=== PATIENT | female | born 1970 | race Caucasian/White ===

== ENCOUNTER 2016-08-04 12:20 | Emergency (ER) | payer MEDICAID ==
[~2016-08-04] VITALS: Ht 165.1 cm; Wt 90.7 kg
[2016-08-04 13:01] VITALS: BP 116/75
[2016-08-04] MEDS ORDERED: VENTOLIN H0.09 MG/Ac IH (13:05)
--- NOTE | 2016-08-04 13:19 | NUR ---
PATIENT PRESENTS TO ED WITH ABD. PAIN AND LOW BACK PAIN X2DAYS. HX: ASTHMA AND HTN;. DENIES N/V/D; SKIN IS PINK/WARM/DRY; AAOX4 WITH EVEN AND STEADY GAIT; LUNGS CLEAR BL; HR EVEN AND REGULAR; PT DENIES ANY FEVER, CP, SOB, OR COUGH AT THIS TIME; PATIENT STATES PAIN OF 7/10 AT THIS TIME; VSS; PATIENT POSITIONED FOR COMFORT; HOB ELEVATED; BEDRAILS UP X2; BED DOWN. ER MD MADE AWARE OF PT STATUS.
[2016-08-04 13:40] VITALS: BP 116/75
== END 2016-08-04 13:41 | disposition home or self-care (01) ==
LOC: MED 12:20
DX: N39.0 Urinary tract infection, site not specified (principal); E66.01 Morbid (severe) obesity due to excess calories; J45.909 Unspecified asthma, uncomplicated; I10 Essential (primary) hypertension; Z68.33 Body mass index [BMI] 33.0-33.9, adult

== ENCOUNTER 2016-12-29 17:38 | Emergency (ER) | payer MEDICAID ==
[~2016-12-29] VITALS: Ht 154.9 cm; Wt 130.7 kg
[~2016-12-29 17:38] MED LIST: ALBU0.0912 IH
[2016-12-29 17:44] VITALS: BP 118/71
--- NOTE | 2016-12-29 19:31 | NUR ---
Patient to bed 07.
--- NOTE | 2016-12-29 20:00 | NUR ---
46 Y/O F W/C/O LEFT ANKLE PAIN D/T SPRAYED RAID [place] POISON 2 DAYS AGO TO ATTEMPTING TO KILL FLEAS SHE WAS CLEANING THE YARD, SKIN IRRITATION , PAIN UPON WALKING, FLUID FILLED BLISTERS, TENDER TO TOUCH. DENIES ANY SOB, OR FEVER. ALERT AND ORIENTED X 4, NO S/S OF DISTRESS NOTED AT THE MOMENT.
--- NOTE | 2016-12-29 20:15 | NUR ---
PT RESTING IN BED, NO S/S OF DISTRESS NOTED AT THE MOMENT,.
[2016-12-29 20:32] VITALS: BP 106/66
--- NOTE | 2016-12-29 20:32 | NUR ---
Patient discharged with v/s stable. Written and verbal after care instructions given and explained. Patient alert, oriented and verbalized understanding of instructions. Ambulatory with steady gait. All questions addressed prior to discharge. ID band removed. Patient advised to follow up with PMD OR RETURN TO ER IF CONDITION WORSENS. Rx of HYDROCORTISONE, AND BENADRYL given. Patient educated on indication of medication including possible reaction and side effects. Opportunity to ask questions provided and answered.
== END 2016-12-29 20:32 | disposition home or self-care (01) ==
LOC: MED 17:38
DX: R21 Rash and other nonspecific skin eruption (principal); J45.909 Unspecified asthma, uncomplicated; I10 Essential (primary) hypertension
CPT/HCPCS: 99283

== ENCOUNTER 2017-11-21 21:54 | Emergency (ER) | payer SELFPAY ==
[~2017-11-21] VITALS: Ht 157.5 cm; Wt 133.8 kg
[2017-11-21 21:59] VITALS: BP 121/60
--- NOTE | 2017-11-21 22:06 | NUR ---
TO LOBBY VIA W/C, VSS, EKG DONE , NSR ERMD NOTED
--- NOTE | 2017-11-21 22:44 | NUR ---
PT W/C ASSISTED TO BED 8
--- NOTE | 2017-11-21 23:15 | NUR ---
C/O CHEST PAIN THAT RADIATES TO BACK STARTING YESTERDAY AFTER HAVING "SMALL GLASS OF TEQUILA". RR EVEN AND UNLABORED, BL BS CLEAR THROUGH OUT. PT HAS DROWSINESS. NO N/V/D, SOB. PT IS RESTING IN BED, AA&OX4, AROUSABLE TO VERBAL STIMULI, APPEARS TO BE IN NO ACUTE DISTRESS, DAUGHTER AT BEDSIDE. PMH ASTHMA, NKDA
--- NOTE | 2017-11-22 00:59 | NUR ---
Dr. Carson evaluating patient at bedside.
[2017-11-22] MEDS ORDERED: KETOROLAC 60 MG/2 ML VIAL IM ONE (01:40)
[2017-11-22 03:20] VITALS: BP 98/57
--- NOTE | 2017-11-22 03:51 | NUR ---
Patient discharged with v/s stable. Written and verbal after care instructions given and explained. Patient alert, oriented and verbalized understanding of instructions. Ambulatory with steady gait. All questions addressed prior to discharge. ID band removed. Patient advised to follow up with PMD. Rx of ATIVAN, NAPROSYN given. Patient educated on indication of medication including possible reaction and side effects. Opportunity to ask questions provided and answered.
== END 2017-11-22 03:51 | disposition home or self-care (01) ==
LOC: MED 21:54
DX: R07.89 Other chest pain (principal); R05 Cough; R94.31 Abnormal electrocardiogram [ECG] [EKG]; F10.99 Alcohol use, unspecified with unspecified alcohol-induced disorder; J45.909 Unspecified asthma, uncomplicated; I10 Essential (primary) hypertension; Z79.899 Other long term (current) drug therapy
CPT/HCPCS: 96372; 99283; J1885; 93005

== ENCOUNTER 2020-12-30 17:43 | Emergency (ER) | payer MEDICAID ==
[~2020-12-30] VITALS: Ht 152.4 cm; Wt 136.1 kg
[2020-12-30 17:57] VITALS: BP 125/67
[2020-12-30] MEDS ORDERED: KETOROLAC 30 MG/ML VIAL IM ONE (20:40)
[2020-12-30] MEDS ORDERED: TRAM50TA1 PO (20:43)
[2020-12-30] MEDS ORDERED: DICL20GE TP (20:43)
[2020-12-30 21:19] VITALS: BP 128/72
--- NOTE | 2020-12-30 21:19 | NUR ---
Patient discharged with v/s stable. Written and verbal after care instructions given and explained. Patient alert, oriented and verbalized understanding of instructions. Ambulatory with steady gait. All questions addressed prior to discharge. ID band removed. Patient advised to follow up with PMD. Rx of TRAMADOL,DICLOFENAC SODIUM given. Patient educated on indication of medication including possible reaction and side effects. Opportunity to ask questions provided and answered.
== END 2020-12-30 21:19 | disposition home or self-care (01) ==
LOC: MED 17:43
DX: M13.861 Other specified arthritis, right knee (principal); J45.909 Unspecified asthma, uncomplicated; I10 Essential (primary) hypertension; Z79.899 Other long term (current) drug therapy
CPT/HCPCS: 73560; 96372; 99283; J1885